=== PATIENT | female | born 1985 | race Caucasian/White ===

== ENCOUNTER 2020-06-27 07:31 | Emergency (ER) | payer OTHER ==
[~2020-06-27] VITALS: Ht 167.6 cm; Wt 88.5 kg
[~2020-06-27 07:31] MED LIST: Bactrim Ds Tab1 EACH PO; CEPH500 PO; Cleocin HCl300 MG PO
[2020-06-27] MEDS ORDERED: ALBU90OI INH (08:04)
== END 2020-06-27 08:18 | disposition home or self-care (01) ==
LOC: ER 07:31
DX: J45.901 Unspecified asthma with (acute) exacerbation (principal); Z88.2 Allergy status to sulfonamides; Z91.018 Allergy to other foods
CPT/HCPCS: 99285

== ENCOUNTER 2023-02-06 05:34 | Emergency (ER) | payer OTHER ==
[~2023-02-06] VITALS: Ht 165.1 cm; Wt 88.5 kg
[~2023-02-06 05:34] MED LIST changes: +ALBU90OI INH
[2023-02-06 05:55] VITALS: BP 152/87
== END 2023-02-06 06:43 | disposition home or self-care (01) ==
LOC: ER 05:34
DX: H92.02 Otalgia, left ear (principal); Z88.2 Allergy status to sulfonamides; Z91.018 Allergy to other foods
CPT/HCPCS: 99282

== ENCOUNTER 2024-03-02 11:52 | Emergency (ER) | payer OTHER ==
[~2024-03-02] VITALS: Ht 162.6 cm; Wt 93.0 kg
[2024-03-02 12:12] VITALS: BP 139/96
[2024-03-02] MEDS ORDERED: IBUP800 PO (13:40)
[2024-03-02] MEDS ORDERED: Methocarbamol 500 MG Tab PO ONE (13:40)
[2024-03-02] MEDS ORDERED: Robaxin750 MG PO (13:40)
== END 2024-03-02 13:48 | disposition home or self-care (01) ==
LOC: ER 11:52
DX: M54.32 Sciatica, left side (principal); Z88.8 Allergy status to other drugs, medicaments and biological substances; Z88.2 Allergy status to sulfonamides; Z91.018 Allergy to other foods; J45.909 Unspecified asthma, uncomplicated
CPT/HCPCS: 99283; A9270